=== PATIENT | female | born 1965 | race Hispanic/Latino ===

== ENCOUNTER 2017-06-19 10:32 | Emergency (ER) | payer MEDICAID, OTHER ==
[2017-06-19] MEDS ORDERED: VANCOMYCIN/NS 1 GM/250 ML 1 GM/250 ML BAG IV ONE (11:17)
--- NOTE | 2017-06-19 11:21 | Emergency Department Report ---
HPI - General Chief Complaint: Skin/Abscess/Foreign Body Time Seen by Provider: 06/19/17 11:06 - HPI HPI: This is a 52-year-old female presents to the emergency department with complaint of a left lateral breast abscess and/or cellulitis has been going on for the past 5 days. She says it has been draining some purulent discharge. She denies any fever, nausea, vomiting, chest pain, shortness of breath. She is not taking anything for her symptoms prior to presentation. She has a history of insulin-dependent diabetes. Her primary care physician is a Dr. Digna Galvan. She is not seeing anyone regarding her symptoms prior to presentation. No recent travel or sick contacts at home. ED Past Medical Hx - Past Medical History Hx Congestive Heart Failure: No Hx Diabetes: Yes Hx Asthma: No Hx COPD: No Additional medical history: foot ulcers - Surgical History Additional Surgical History: . LEFT 2ND TOE AMPUTATED,tubiligation - Social History Smoking Status: Never Smoker Substance Use Type: None - Medications Home Medications: Home Medications Medication Instructions Recorded Confirmed Last Taken Type Insulin Glargine [Lantus VIAL] 20 unit SUB-Q QHS 07/29/16 07/29/16 Unknown History Insulin Lispro [HumaLOG VIAL] 7 units SQ AC 07/29/16 07/29/16 Unknown History Lisinopril [Zestril TAB] 10 mg PO QDAY 07/29/16 07/29/16 Unknown History Clindamycin [Clindamycin CAP] 300 mg PO Q8H #30 cap 08/02/16 Unknown Rx HYDROcodone/APAP 5-325 [[place] 1 each PO Q6HR PRN #10 tablet 06/19/17 Unknown Rx 5/325] Sulfamethoxazole/Trimethoprim 1 each PO BID #20 tablet 06/19/17 Unknown Rx [Bactrim DS TAB] ED Review of Systems ROS: Stated complaint: ABCESS UNDER LEFT BREAST Other details as noted in HPI Comment: All other systems reviewed and negative Constitutional: denies: chills, fever Eyes: denies: eye pain, eye discharge, vision change ENT: denies: ear pain, throat pain Respiratory: denies: cough, shortness of breath, wheezing Cardiovascular: denies: chest pain, palpitations Gastrointestinal: denies: abdominal pain, nausea, diarrhea Genitourinary: denies: urgency, dysuria, discharge Musculoskeletal: denies: back pain, joint swelling, arthralgia Skin: lesions, change in color Neurological: denies: headache, weakness, paresthesias Physical Exam - Physical Exam Vital Signs: Vital Signs 06/19/17 10:43 Temperature 98.2 F Pulse Rate 100 H Respiratory 16 Rate Blood Pressure 170/85 O2 Sat by Pulse 100 Oximetry Physical Exam: GENERAL: The patient is well-developed well-nourished. HENT: Normocephalic. Atraumatic. Patient has moist mucous membranes. EYES: Extraocular motions are intact. Pupils equal reactive to light bilaterally. NECK: Supple. No meningitic signs are noted. There is no adenopathy noted. CHEST/LUNGS: Clear to auscultation. There is no respiratory distress noted. HEART/CARDIOVASCULAR: Regular. There is no tachycardia. There is no gallop rub or murmur. ABDOMEN: Abdomen is soft, nontender. Patient has normal bowel sounds. There is no abdominal distention. SKIN: There is a moderate amount of erythema seen to the left lateral breast. In the middle of this erythema is a eschar and some mild surrounding fluctuance concerning for a abscess. NEURO: The patient is awake, alert, and oriented. The patient is cooperative. The patient has no focal neurologic deficits. The patient has normal speech. MUSCULOSKELETAL: There is no tenderness or deformity. There is no limitation range of motion. There is no evidence of acute injury. ED Course Vital Signs 06/19/17 10:43 Temperature 98.2 F Pulse Rate 100 H Respiratory 16 Rate Blood Pressure 170/85 O2 Sat by Pulse 100 Oximetry ED Medical Decision Making - Lab Data Result diagrams: 06/19/17 13:50 - Radiology Data Radiology results: report reviewed Left breast ultrasound shows subcutaneous region of the left breast at the 4 o' clock position that there is a small hypoechoic collection measuring 1.4 x 0.6 cm. There is no acute stick shadowing. This probably represents a small abscess or hematoma. - Medical Decision Making 52-year-old female presents with a five-day history of left breast lesion concerning for abscess. Physical exam it also appears as if there is cellulitic changes. The abscess previously was draining and that is how it appears as there is currently now an eschar but no significant fluctuance. Her vitals are stable including being afebrile. CBC was obtained and there is no leukocytosis. Ultrasound confirmed the abscess. Given vancomycin antibiotics here. She'll go home on antibiotics and given a referral for kayla Li to follow up regarding the breast abscess and cellulitis. - Differential Diagnosis abscess, cellulitis, boil, cyst, malignancy Critical Care Time: No Critical care attestation.: If time is entered above; I have spent that time in minutes in the direct care of this critically ill patient, excluding procedure time. ED Disposition Clinical Impression: Breast abscess, Cellulitis of breast Disposition: DC- TO HOME OR SELFCARE Is pt being admited?: No Condition: Stable Instructions: Breast Abscess Drainage (ED), Cellulitis (ED) Additional Instructions: Please follow up with your primary care physician. I've given a referral for Kayla Li, who can further evaluate your breast abscess and cellulitis. Take the antibiotics as prescribed. Return to the emergency Department with any worsening of her symptoms or any acute distress. You have been prescribed a medication that is sedating and therefore should not be taken prior to driving, working, and responsible for children and in no way should be mixed with alcohol of any quantity. Prescriptions: HYDROcodone/APAP 5-325 [[place] 5/325] 1 each PO Q6HR PRN #10 tablet PRN Reason: Pain Sulfamethoxazole/Trimethoprim [Bactrim DS TAB] 1 each PO BID #20 tablet Referrals: PRIMARY CAREMD [Primary Care Provider] - 3-5 Days [facility] [Provider Group] - 3-5 Days Time of Disposition: 14:14
--- NOTE | 2017-06-19 13:54 | Ultrasound Report ---
Targeted left breast ultrasound. History: Left breast wound with periodic drainage. Findings: A limited study was performed at the site of clinical findings. In the subcutaneous region of the left breast at the 4:00 position, there is a small hypoechoic collection measuring 1.4 x 0.6 cm. There is no acoustic shadowing. This probably represents a small abscess or hematoma.
[2017-06-19 14:08] LABS: Basophils % (Auto) 1.4 % (0.0-1.8); Eosinophils % (Auto) 1.4 % (0.0-4.3); Hematocrit 40.4 % (30.3-42.9); Mean Corpuscular HGB Conc 35 % (30-34); Mean Corpuscular Hemoglobin 30 pg (28-32); Mean Corpuscular Volume 87 fl (79-97); Red Blood Count 4.64 M/mm3 (3.65-5.03); Red Cell Distribution Width 13.2 % (13.2-15.2); White Blood Count 7.5 K/mm3 (4.5-11.0)
[2017-06-19 14:48] VITALS: BP 147/78
[2017-06-19 16:11] LABS: Platelet Count 123 K/mm3 (140-440)
== END 2017-06-19 14:48 | disposition home or self-care (01) ==
LOC: ED 10:32
DX: N61.1 Abscess of the breast and nipple (principal); N61.0 Mastitis without abscess; E11.9 Type 2 diabetes mellitus without complications; Z79.4 Long term (current) use of insulin
CPT/HCPCS: 36415; 76642; 85025; 96365; 99284; J3370

== ENCOUNTER 2017-08-21 08:56 | Emergency (ER) | payer OTHER ==
[2017-08-21 09:15] VITALS: BP 154/72
[2017-08-21] MEDS ORDERED: MOTRIN PO ONE (11:01)
--- NOTE | 2017-08-21 11:37 | XRay Report ---
Right hip 3 views: History: Hip pain. Findings: There is moderate to severe arthritic changes noted at the superior aspect of the hip joint. No fracture dislocation or soft tissue calcification. Impression: Arthritic changes right hip.
--- NOTE | 2017-08-21 11:56 | Emergency Department Report ---
ED Lower Extremity HPI - General Chief Complaint: Extremity Injury, Lower Stated Complaint: RIGHT HIP PAIN Time Seen by Provider: 08/21/17 10:53 Source: patient Mode of arrival: Ambulatory Limitations: No Limitations - History of Present Illness Initial Comments: This is a 52-year-old female nontoxic, well nourished in appearance, no acute signs of distress presents to the ED complaining of chronic intermittent right hip pain. Patient stated the last 3 days she developed right hip pain worsening. Patient denies any trauma to the region. Denies any joint swelling , joint redness, fever, chills, numbness, tingling, headache, stiff neck, chest pain or shortness of breath. Patient states symptoms are resolved with taking [id number] Tylenol. She denies any allergies. Past medical history includes diabetes. MD Complaint: hip injury -: year(s) Injury: Hip: Right Severity: mild Severity scale (0 -10): 8 Improves With: other (Tylenol) Worsens With: nothing Associated Symptoms: ambulatory. denies: snap/pop sensation, swelling, numbness , tingling, unable to bear weight, able to partially bear weight - Related Data Home Medications Medication Instructions Recorded Confirmed Last Taken Insulin Glargine [Lantus VIAL] 20 unit SUB-Q QHS 07/29/16 07/29/16 Unknown Insulin Lispro [HumaLOG VIAL] 7 units SQ AC 07/29/16 07/29/16 Unknown Lisinopril [Zestril TAB] 10 mg PO QDAY 07/29/16 07/29/16 Unknown Previous Rx's Medication Instructions Recorded Last Taken Type Clindamycin [Clindamycin CAP] 300 mg PO Q8H #30 cap 08/02/16 Unknown Rx HYDROcodone/APAP 5-325 [[place] 1 each PO Q6HR PRN #10 tablet 06/19/17 Unknown Rx 5/325] Sulfamethoxazole/Trimethoprim 1 each PO BID #20 tablet 06/19/17 Unknown Rx [Bactrim DS TAB] Acetaminophen [Tylenol Arthritis] 650 mg PO Q8H #30 tablet.er 08/21/17 Unknown Rx Allergies Allergy/AdvReac Type Severity Reaction Status Date / Time No Known Allergies Allergy Verified 06/19/17 10:36 ED Review of Systems ROS: Stated complaint: RIGHT HIP PAIN Other details as noted in HPI Constitutional: denies: chills, fever Eyes: denies: eye pain, eye discharge, vision change ENT: denies: ear pain, throat pain Respiratory: denies: cough, shortness of breath, wheezing Cardiovascular: denies: chest pain, palpitations Endocrine: no symptoms reported Gastrointestinal: denies: abdominal pain, nausea, diarrhea Genitourinary: denies: urgency, dysuria, discharge Musculoskeletal: denies: back pain, joint swelling, arthralgia Skin: denies: rash, lesions Neurological: denies: headache, weakness, paresthesias Psychiatric: denies: anxiety, depression Hematological/Lymphatic: denies: easy bleeding, easy bruising ED Past Medical Hx - Past Medical History Previous Medical History?: Yes Hx CVA: No Hx Congestive Heart Failure: No Hx Diabetes: Yes Hx Deep Vein Thrombosis: No Hx GERD: No Hx of Cancer: No Hx Headaches / Migraines: No Hx Asthma: No Hx COPD: No Additional medical history: foot ulcers - Surgical History Past Surgical History?: Yes Additional Surgical History: . LEFT 2ND TOE AMPUTATED,tubiligation - Social History Smoking Status: Never Smoker Substance Use Type: None - Medications Home Medications: Home Medications Medication Instructions Recorded Confirmed Last Taken Type Insulin Glargine [Lantus VIAL] 20 unit SUB-Q QHS 07/29/16 07/29/16 Unknown History Insulin Lispro [HumaLOG VIAL] 7 units SQ AC 07/29/16 07/29/16 Unknown History Lisinopril [Zestril TAB] 10 mg PO QDAY 07/29/16 07/29/16 Unknown History Clindamycin [Clindamycin CAP] 300 mg PO Q8H #30 cap 08/02/16 Unknown Rx HYDROcodone/APAP 5-325 [[place] 1 each PO Q6HR PRN #10 tablet 06/19/17 Unknown Rx 5/325] Sulfamethoxazole/Trimethoprim 1 each PO BID #20 tablet 06/19/17 Unknown Rx [Bactrim DS TAB] Acetaminophen [Tylenol Arthritis] 650 mg PO Q8H #30 tablet.er 08/21/17 Unknown Rx ED Physical Exam - General Limitations: No Limitations General appearance: alert, in no apparent distress - Head Head exam: Present: atraumatic, normocephalic, normal inspection - Eye Eye exam: Present: normal appearance, PERRL, EOMI. Absent: scleral icterus, conjunctival injection, nystagmus, periorbital swelling, periorbital tenderness Pupils: Present: normal accommodation - ENT ENT exam: Present: normal exam, normal orophraynx, mucous membranes moist, TM's normal bilaterally, normal external ear exam - Neck Neck exam: Present: normal inspection, full ROM. Absent: tenderness, meningismus, lymphadenopathy, thyromegaly - Respiratory Respiratory exam: Present: normal lung sounds bilaterally. Absent: respiratory distress, wheezes, rales, rhonchi, stridor, chest wall tenderness, accessory muscle use, decreased breath sounds, prolonged expiratory - Cardiovascular Cardiovascular Exam: Present: regular rate, normal rhythm, normal heart sounds. Absent: bradycardia, tachycardia, irregular rhythm, systolic murmur, diastolic murmur, rubs, gallop - GI/Abdominal GI/Abdominal exam: Present: soft, normal bowel sounds. Absent: distended, tenderness, guarding, rebound, rigid, diminished bowel sounds - Rectal Rectal exam: Present: deferred - Extremities Exam Extremities exam: Present: normal inspection, full ROM, normal capillary refill. Absent: tenderness, pedal edema, joint swelling, calf tenderness - Expanded Lower Extremity Exam Right Hip exam: Present: normal inspection, full ROM, external rotation, internal rotation, pelvic stability. Absent: tenderness, swelling, abrasion, laceration , ecchymosis, deformity, crepidus, dislocation, erythema, shortening Upper Leg exam: Present: normal inspection, full ROM Knee exam: Present: normal inspection, full ROM Lower Leg exam: Present: normal inspection, full ROM Ankle exam: Present: normal inspection, full ROM Foot/Toe exam: Present: normal inspection, full ROM Neuro vascular tendon exam: Present: no vascular compromise. Absent: pulse deficit, abnormal cap refill, motor deficit, sensory deficit, tendon deficit, extremity cold to touch, pallor, abnormal 2-point discrimination, decreased fine /light touch, foot drop, peroneal nerve deficit, significant pain with passive ROM of distal joint Gait: Positive: observed and normal - Back Exam Back exam: Present: normal inspection, full ROM. Absent: tenderness, CVA tenderness (R), CVA tenderness (L), muscle spasm, paraspinal tenderness, vertebral tenderness, rash noted - Neurological Exam Neurological exam: Present: alert, oriented X3, CN II-XII intact, normal gait, reflexes normal - Psychiatric Psychiatric exam: Present: normal affect, normal mood - Skin Skin exam: Present: warm, dry, intact, normal color. Absent: rash ED Course Vital Signs 08/21/17 09:04 Temperature 97.9 F Pulse Rate 63 Respiratory 16 Rate Blood Pressure 154/72 O2 Sat by Pulse 97 Oximetry - Reevaluation(s) Reevaluation #1: 08/21/17 11:58 Patient is speaking in full sentences with no signs of distress noted. ED Lower Extremity MDM - Medical Decision Making This is a 52-year-old female that presents with arthritic pain over the right hip. Patient was examined by me and patient is stable. There are no signs of cellulitis, swelling, bursitis. Normal range of motion and normal abduction and abduction. X-ray has been obtained and reviewed by radiologist with findings of arthritis. Patient notified of x-ray results with no further questions nor by the patient. Patient received ibuprofen 800 mg by mouth and ED with persistent symptoms are improving and are subsided. Patient was instructed to follow-up with a primary care doctor in 3-5 days or if symptoms worsen and continue return to emergency room as soon as possible possible. Patient is hemodynamically stable with stable vital signs. Patient states he is feeling better. At time time of discharge, the patient does not seem toxic or ill in appearance. No acute signs of distress noted. Patient agrees to discharge treatment plan of care. No further questions noted by the patient. patient will be treated with Tylenol arthritis. Critical care attestation.: If time is entered above; I have spent that time in minutes in the direct care of this critically ill patient, excluding procedure time. ED Disposition Clinical Impression: Arthritis Disposition: DC-01 TO HOME OR SELFCARE Is pt being admited?: No Does the pt Need Aspirin: No Condition: Stable Instructions: Acetaminophen (By mouth), Rheumatoid Arthritis (ED) Additional Instructions: Follow-up with a primary care doctor in 3-5 days or if symptoms worsen and continue return to emergency room as soon as possible possible. Prescriptions: Acetaminophen [Tylenol Arthritis] 650 mg PO Q8H #30 tablet.er Referrals: PRIMARY MD SAMANTHA [Primary Care Provider] - 3-5 Days MYAH CHAWLA MD [Staff Physician] - 3-5 Days [facility] [Outside] - 3-5 Days [facility] [place] [Outside] - 3-5 Days
== END 2017-08-21 12:08 | disposition home or self-care (01) ==
LOC: ED 08:56
DX: M16.11 Unilateral primary osteoarthritis, right hip (principal); E11.9 Type 2 diabetes mellitus without complications

== ENCOUNTER 2017-11-09 12:16 | Emergency (ER) | payer OTHER ==
[2017-11-09 13:15] VITALS: BP 168/96
[2017-11-09 15:04] LABS: Alanine Aminotransferase 10 units/L (7-56); Albumin 3.6 g/dL (3.9-5); BUN/Creatinine Ratio 32; Blood Urea Nitrogen 16 mg/dL (7-17); Calcium 9.7 mg/dL (8.4-10.2); Hemolysis Index 49
[2017-11-09 17:05] LABS: Hemoglobin 14.5 gm/dl (10.1-14.3); Mean Corpuscular HGB Conc 33 % (30-34); Mean Corpuscular Hemoglobin 29 pg (28-32); Mean Corpuscular Volume 88 fl (79-97); Platelet Count 250 K/mm3 (140-440); Red Blood Count 4.99 M/mm3 (3.65-5.03); Red Cell Distribution Width 12.8 % (13.2-15.2)
--- NOTE | 2017-11-09 17:13 | Emergency Department Report ---
ED Extremity Problem HPI - General Chief complaint: Extremity Problem,Nontraumatic Stated complaint: SORE LEFT LEG W/REDNESS Time Seen by Provider: 11/09/17 17:06 Source: patient Mode of arrival: Ambulatory Limitations: No Limitations - History of Present Illness Initial comments: Pleasant diabetic 52 y/o female diabetic patient who reports that she has had a non-healing ulcer on her left lower extremity, and her patient financial services specialist put her in a cast, the cast was apparently rubbing against her leg and then she noted increased redness, swelling, and warmth to the area. She denies chest pain or shortness of breath, no other symptoms. She states she is worried about a clot. MD Complaint: extremity pain (left), extremity swelling (left) -: days(s) (2) Location: left, lower extremity History of Same: No Radiation: none Severity scale (0 -10): 5 Quality: aching Consistency: constant Improves with: nothing Worsens with: nothing Associated Symptoms: denies other symptoms. denies: chest pain, shortness of breath, fever, myalgias, arthralgias, rash - Related Data Home Medications Medication Instructions Recorded Confirmed Last Taken Insulin Glargine [Lantus VIAL] 20 unit SUB-Q QHS 07/29/16 07/29/16 Unknown Insulin Lispro [HumaLOG VIAL] 7 units SQ AC 07/29/16 07/29/16 Unknown Lisinopril [Zestril TAB] 10 mg PO QDAY 07/29/16 07/29/16 Unknown Previous Rx's Medication Instructions Recorded Last Taken Type Clindamycin [Clindamycin CAP] 300 mg PO Q8H #30 cap 08/02/16 Unknown Rx HYDROcodone/APAP 5-325 [[place] 1 each PO Q6HR PRN #10 tablet 06/19/17 Unknown Rx 5/325] Sulfamethoxazole/Trimethoprim 1 each PO BID #20 tablet 06/19/17 Unknown Rx [Bactrim DS TAB] Acetaminophen [Tylenol Arthritis] 650 mg PO Q8H #30 tablet.er 08/21/17 Unknown Rx Clindamycin [Clindamycin CAP] 300 mg PO Q8H 10 Days #30 cap 11/09/17 Unknown Rx Allergies Allergy/AdvReac Type Severity Reaction Status Date / Time No Known Allergies Allergy Verified 06/19/17 10:36 ED Review of Systems ROS: Stated complaint: SORE LEFT LEG W/REDNESS Other details as noted in HPI Constitutional: no symptoms reported Respiratory: no symptoms reported Cardiovascular: denies: chest pain Endocrine: no symptoms reported Gastrointestinal: as per HPI Genitourinary: as per HPI Musculoskeletal: as per HPI Skin: as per HPI, other (warm, erythema ) Neurological: as per HPI Hematological/Lymphatic: as per HPI ED Past Medical Hx - Past Medical History Previous Medical History?: Yes Hx CVA: No Hx Congestive Heart Failure: No Hx Diabetes: Yes Hx Deep Vein Thrombosis: No Hx GERD: No Hx Headaches / Migraines: No Hx Asthma: No Hx COPD: No Additional medical history: foot ulcers - Surgical History Past Surgical History?: Yes Additional Surgical History: . LEFT 2ND TOE AMPUTATED,tubiligation - Social History Smoking Status: Never Smoker Substance Use Type: None - Medications Home Medications: Home Medications Medication Instructions Recorded Confirmed Last Taken Type Insulin Glargine [Lantus VIAL] 20 unit SUB-Q QHS 07/29/16 07/29/16 Unknown History Insulin Lispro [HumaLOG VIAL] 7 units SQ AC 07/29/16 07/29/16 Unknown History Lisinopril [Zestril TAB] 10 mg PO QDAY 07/29/16 07/29/16 Unknown History Clindamycin [Clindamycin CAP] 300 mg PO Q8H #30 cap 08/02/16 Unknown Rx HYDROcodone/APAP 5-325 [[place] 1 each PO Q6HR PRN #10 tablet 06/19/17 Unknown Rx 5/325] Sulfamethoxazole/Trimethoprim 1 each PO BID #20 tablet 06/19/17 Unknown Rx [Bactrim DS TAB] Acetaminophen [Tylenol Arthritis] 650 mg PO Q8H #30 tablet.er 08/21/17 Unknown Rx Clindamycin [Clindamycin CAP] 300 mg PO Q8H 10 Days #30 cap 11/09/17 Unknown Rx ED Physical Exam - General Limitations: No Limitations General appearance: alert, in no apparent distress - Head Head exam: Present: atraumatic, normocephalic - Eye Eye exam: Present: normal appearance - ENT ENT exam: Present: mucous membranes moist - Neck Neck exam: Present: normal inspection - Respiratory Respiratory exam: Present: normal lung sounds bilaterally. Absent: respiratory distress - Cardiovascular Cardiovascular Exam: Present: regular rate, normal rhythm. Absent: systolic murmur, diastolic murmur, rubs, gallop - GI/Abdominal GI/Abdominal exam: Present: soft, normal bowel sounds - Expanded Lower Extremity Exam Left Hip exam: Present: normal inspection, full ROM Upper Leg exam: Present: normal inspection Knee exam: Present: normal inspection Lower Leg exam: Present: full ROM, tenderness, swelling, abrasion, erythema Ankle exam: Present: normal inspection Foot/Toe exam: Present: amputation - Back Exam Back exam: Present: normal inspection - Neurological Exam Neurological exam: Present: alert, oriented X3 - Psychiatric Psychiatric exam: Present: normal affect, normal mood - Skin Skin exam: Present: warm, dry, intact, normal color. Absent: rash ED Course Vital Signs 11/09/17 13:10 Temperature 98.4 F Pulse Rate 107 H Respiratory 18 Rate Blood Pressure 168/96 O2 Sat by Pulse 97 Oximetry ED Medical Decision Making - Lab Data Result diagrams: 11/09/17 16:49 11/09/17 13:52 Critical Care Time: No Critical care attestation.: If time is entered above; I have spent that time in minutes in the direct care of this critically ill patient, excluding procedure time. ED Disposition Clinical Impression: Cellulitis of leg, left Diabetes mellitus Qualifiers: Diabetes mellitus type: other specified (including JOHN) Diabetes mellitus complication status: with skin complications Diabetes mellitus complication detail: with other skin ulcer Diabetes mellitus usp insulin use: with terminal manager use Qualified Code(s): E13.622 - Other specified diabetes mellitus with other skin ulcer; Z79.4 - care home (current) use of insulin; Z79.4 - technician terminal and repeater (current) use of insulin; Z79.4 - technician terminal and repeater (current) use of insulin; Z79.4 - care home (current) use of insulin Disposition: DC-01 TO HOME OR SELFCARE Is pt being admited?: No Does the pt Need Aspirin: No Condition: Good Instructions: Diabetes Mellitus Type 2 in Adults (ED), Cellulitis (ED) Additional Instructions: Rest, fluids, follow up with your PMD, return as needed, watch for worsening, new symptoms. Take antibiotics as prescribed. Call 911 if you think you're having a life threatening emergency. Prescriptions: Clindamycin [Clindamycin CAP] 300 mg PO Q8H 10 Days #30 cap Referrals: TONY WINSTON MD [Primary Care Provider] - 3-5 Days
[2017-11-09] MEDS ORDERED: CLEOCIN PO ONE (17:27)
--- NOTE | 2017-11-13 11:44 | Vascular Lab Report ---
Left Lower Extremity Venous Duplex Study: Reason for Exam: Pain of the left lower extremity. Comments on the Right: A limited duplex study was done of the proximal veins of the right lower extremity. All veins visualized are freely compressible without evidence of internal echogenicity. Flow is spontaneous and phasic throughout. No evidence of acute or chronic thrombus is seen in any of the vessels visualized. Comments on the Left: All veins visualized are freely compressible without evidence of internal echogenicity. Flow is spontaneous and phasic throughout. No evidence of acute or chronic thrombus is seen in any of the vessels visualized. Impression: No evidence of acute or chronic deep venous thrombosis in the left lower extremity.
== END 2017-11-09 17:48 | disposition home or self-care (01) ==
LOC: ED 12:16
DX: L03.116 Cellulitis of left lower limb (principal); E11.622 Type 2 diabetes mellitus with other skin ulcer; L97.828 Non-pressure chronic ulcer of other part of left lower leg with other specified severity; Z79.4 Long term (current) use of insulin
CPT/HCPCS: 36415; 80053; 85025

== ENCOUNTER 2019-03-23 11:34 | Emergency (ER) | payer OTHER ==
--- NOTE | 2019-03-23 11:45 | Emergency Department Report ---
Chief Complaint: Hyperglycemia Stated Complaint: HIGH GLUCOSE Time Seen by Provider: 03/23/19 11:41 - HPI History of Present Illness: This is a 53 y.o. F. that presents to the ER with elevated glucose. Patient went to her PCP this morning for swelling and rash to LLE and diagnosed with cellulitis. They checked her glucose 516 and told to f/u in ER. PMH: DM2, HTN, HLD - Exam Vital Signs: Vital Signs 03/23/19 11:42 Temperature 97.9 F Pulse Rate 109 H Respiratory 18 Rate Blood Pressure 150/79 O2 Sat by Pulse 96 Oximetry MSE screening note: Focused history and physical exam performed. Due to findings the following was ordered: This initial assessment/diagnostic orders/clinical plan/treatment(s) is/are subject to change based on patient's health status, clinical progression and re- assessment by fellow clinical providers in the ED. Further treatment and workup at subsequent clinical providers discretion. Patient/guardians urged not to elope from the ED as their condition may be serious if not clinically assessed and managed. Initial orders include: 1- Patient sent to Main ER for further evaluation and treatment 2- Labs ED Medical Decision Making - Lab Data Lab Results 03/23/19 Range/Units 11:45 POC Glucose 306 H (70-105) ED Disposition for MSE Condition: Stable
[2019-03-23 12:31] LABS: Hematocrit 36.4 % (30.3-42.9); Hemoglobin 12.5 gm/dl (10.1-14.3); Mean Corpuscular HGB Conc 34 % (30-34); Mean Corpuscular Volume 86 fl (79-97); Platelet Count 289 K/mm3 (140-440); Red Blood Count 4.25 M/mm3 (3.65-5.03); Red Cell Distribution Width 13.6 % (13.2-15.2)
[2019-03-23 12:38] LABS: Bacteria,Urine 1+ /HPF (Negative); Bilirubin,Urine NEG (Negative); Blood,Urine SM (Negative); Color,Urine Yellow (Yellow); Mucus,Urine FEW /HPF; Urobilinogen,Urine < 2.0 mg/dL (<2.0)
[2019-03-23 12:53] LABS: Albumin 4.1 g/dL (3.9-5)
[2019-03-23] MEDS ORDERED: NACL 0.9% 1000 ML 2,000 ML IV ONE (13:42)
[2019-03-23] MEDS ORDERED: HumuLIN R IV ONE (13:42)
--- NOTE | 2019-03-23 13:42 | Emergency Department Report ---
ED General Adult HPI - General Chief complaint: Hyperglycemia Stated complaint: HIGH GLUCOSE Time Seen by Provider: 03/23/19 11:41 Source: patient, RN notes reviewed, old records reviewed Mode of arrival: Ambulatory Limitations: No Limitations - History of Present Illness Initial comments: Primary care Dr.: Dr. Edmundo Pierce This is a 53-year-old female. The patient is known to this provider previously. Her past medical history includes hypertension, diabetes, history of left foot toe amputations, chronic wounds, now resolved The patient presents to the emergency room today with a complaint of "my doctor sent me here." The patient complains of a painless rash to her distal left lower extremity. The rash has been constant for the past couple days. It is nontender. It is not painful. She denies fevers, chills, pain, pruritus. She denies headache, neck pain, chest pain, abdominal pain, shortness of breath. She denies irritative, obstructive urinary symptoms. Apparently, she was found to be hyperglycemic as well. She endorses compliance with her diabetic medications. She denies dietary indiscretions. She is not currently taking antibiotics. -: days(s) Location: left, lower extremity Consistency: constant Improves with: none Worsens with: cold therapy Associated Symptoms: rash - Related Data Home Medications Medication Instructions Recorded Confirmed Last Taken Insulin Glargine,Hum.rec.anlog 15 units SUB-Q HS 03/23/19 03/23/19 Unknown [Basaglar Kwikpen U-100] Insulin NPH Hum/Reg Insulin Hm 6 units SUB-Q AC 03/23/19 03/23/19 03/23/19 [HumuLIN 70-30 Vial] amLODIPine [Norvasc] 10 mg PO DAILY 03/23/19 03/23/19 03/23/19 Allergies Allergy/AdvReac Type Severity Reaction Status Date / Time No Known Allergies Allergy Verified 03/23/19 11:35 ED Review of Systems ROS: Stated complaint: HIGH GLUCOSE Other details as noted in HPI Constitutional: denies: fever Eyes: denies: eye discharge ENT: denies: epistaxis Respiratory: denies: cough Cardiovascular: denies: chest pain Gastrointestinal: denies: abdominal pain Genitourinary: denies: dysuria Skin: rash, lesions Neurological: weakness Psychiatric: anxiety ED Past Medical Hx - Past Medical History Hx CVA: No Hx Congestive Heart Failure: No Hx Diabetes: Yes Hx Deep Vein Thrombosis: No Hx GERD: No Hx Headaches / Migraines: No Hx Asthma: No Hx COPD: No Additional medical history: foot ulcers - Surgical History Additional Surgical History: . LEFT 2ND TOE AMPUTATED,tubal ligation - Social History Smoking Status: Never Smoker Substance Use Type: None - Medications Home Medications: Home Medications Medication Instructions Recorded Confirmed Last Taken Type Insulin Glargine,Hum.rec.anlog 15 units SUB-Q HS 03/23/19 03/23/19 Unknown History [Basaglar Kwikpen U-100] Insulin NPH Hum/Reg Insulin Hm 6 units SUB-Q AC 03/23/19 03/23/19 03/23/19 History [HumuLIN 70-30 Vial] amLODIPine [Norvasc] 10 mg PO DAILY 03/23/19 03/23/19 03/23/19 History ED Physical Exam - General Limitations: No Limitations General appearance: alert, anxious - Head Head exam: Present: atraumatic, normocephalic - Eye Eye exam: Present: normal appearance, EOMI. Absent: nystagmus - ENT ENT exam: Present: normal exam, normal orophraynx, mucous membranes moist, normal external ear exam - Neck Neck exam: Present: normal inspection, full ROM. Absent: tenderness, meni ngismus - Respiratory Respiratory exam: Present: normal lung sounds bilaterally. Absent: respiratory distress - Cardiovascular Cardiovascular Exam: Present: normal rhythm, tachycardia, normal heart sounds. Absent: systolic murmur, diastolic murmur, rubs, gallop - GI/Abdominal GI/Abdominal exam: Present: soft. Absent: distended, tenderness, guarding, rebound, rigid, pulsatile mass - Extremities Exam Extremities exam: Present: full ROM, other (2+ pulses noted in the bilateral upper, lower extremities. Compartments soft. No long bony tenderness. The pelvis is stable.). Absent: tenderness, joint swelling, calf tenderness - Back Exam Back exam: Present: normal inspection, full ROM. Absent: tenderness, CVA tenderness (R), muscle spasm, paraspinal tenderness, vertebral tenderness - Neurological Exam Neurological exam: Present: alert, other (Extraocular movements intact. Tongue midline. No facial droop. Facial sensation intact to light touch in the V1, V2, V3 distribution bilaterally. 5 and 5 strength in 4 extremities.. Sensation is intact to light touch in 4 extremities.). Absent: motor sensory deficit - Psychiatric Psychiatric exam: Present: anxious - Skin Skin exam: Present: warm, other (on the left lower extremity, nontender purpuric lesions noted, minimally blanching, with no redness, pus, streaking or warmth. Compartments are soft.) ED Course Vital Signs 03/23/19 03/23/19 03/23/19 11:42 15:30 17:16 Temperature 97.9 F Pulse Rate 109 H 104 H 100 H Respiratory 18 18 19 Rate Blood Pressure 150/79 Blood Pressure 144/74 133/71 [Right] O2 Sat by Pulse 96 98 96 Oximetry - Reevaluation(s) Reevaluation #1: 03/23/19 14:57 Differential diagnosis, including but not limited to: Venous stasis, Pigmented purpuric dermatoses, incidental hyperglycemia, incidental renal insufficiency Assessment and plan: 53-year-old female, sent to the emergency room for nontender purpuric rash on her left lower extremity, likely venous stasis, or Pigmented purpuric dermatoses There is no redness, warmth, tenderness, her examination is not consistent with cellulitis or compartment syndrome. Incidentally found to have evidence of dehydration, manifested by tachycardia, and minimal renal insufficiency. She is found to be hyperglycemic, without evidence of anion gap acidosis. Reassurance is provided to the patient. She can follow up with an outpatient cardiology specialist electively. She will be given IV fluids for presumed dehydration. She can follow up with her outpatient primary care doctor, or college coach for her incidental renal insufficiency. 03/23/19 14:58 Reevaluation #2: 03/23/19 14:59 Urinalysis is reviewed and appreciated. The patient does not endorse any urinary symptoms. Reevaluation #3: 03/23/19 17:18 Patient is observed in the emergency room for a few hours. Her tachycardia is improving. She is tolerating liquid feeds. Hyperglycemia overzealously corrected, and now acceptable, with a level at 190. Has no urinary symptoms. The patient is suitable to be discharged to follow-up with her outpatient physician. ED Medical Decision Making - Lab Data Result diagrams: 03/23/19 11:56 03/23/19 Unknown Vital Signs 03/23/19 11:42 Temperature 97.9 F Pulse Rate 109 H Respiratory 18 Rate Blood Pressure 150/79 O2 Sat by Pulse 96 Oximetry Lab Results 03/23/19 03/23/19 03/23/19 Range/Units 11:45 11:56 11:58 WBC 6.8 (4.5-11.0) K/mm3 RBC 4.25 (3.65-5.03) M/mm3 Hgb 12.5 (10.1-14.3) gm/dl Hct 36.4 (30.3-42.9) % MCV 86 (79-97) fl MCH 29 (28-32) pg MCHC 34 (30-34) % RDW 13.6 (13.2-15.2) % Plt Count 289 (140-440) K/mm3 Sodium (137-145) mmol/L Potassium (3.6-5.0) mmol/L Chloride (98-107) mmol/L Carbon Dioxide (22-30) mmol/L Anion Gap mmol/L BUN (7-17) mg/dL Creatinine (0.7-1.2) mg/dL Estimated GFR ml/min BUN/Creatinine Ratio % Glucose (65-100) mg/dL POC Glucose 306 H (70-105) Calcium (8.4-10.2) mg/dL Total Bilirubin (0.1-1.2) mg/dL AST (5-40) units/L ALT (7-56) units/L Alkaline Phosphatase (35-129) units/L Total Protein (6.3-8.2) g/dL Albumin (3.9-5) g/dL Albumin/Globulin Ratio % Urine Color Yellow (Yellow) Urine Turbidity Clear (Clear) Urine pH 5.0 (5.0-7.0) Ur Specific [place] 1.018 (1.003-1.030) Urine Protein 30 mg/dl (Negative) mg/dL Urine Glucose (UA) >=500 (Negative) mg/dL Urine Ketones Neg (Negative) mg/dL Urine Blood Sm (Negative) Urine Nitrite Neg (Negative) Urine Bilirubin Neg (Negative) Urine Urobilinogen < 2.0 (<2.0) mg/dL Ur Leukocyte Esterase Sm (Negative) Urine WBC (Auto) 30.0 H (0.0-6.0) /HPF Urine RBC (Auto) 1.0 (0.0-6.0) /HPF U Epithel Cells (Auto) 3.0 (0-13.0) /HPF Urine Bacteria (Auto) 1+ (Negative) /HPF Urine Mucus Few /HPF 03/23/19 Range/Units Unknown WBC (4.5-11.0) K/mm3 RBC (3.65-5.03) M/mm3 Hgb (10.1-14.3) gm/dl Hct (30.3-42.9) % MCV (79-97) fl MCH (28-32) pg MCHC (30-34) % RDW (13.2-15.2) % Plt Count (140-440) K/mm3 Sodium 137 (137-145) mmol/L Potassium 4.1 (3.6-5.0) mmol/L Chloride 97.1 L (98-107) mmol/L Carbon Dioxide 28 (22-30) mmol/L Anion Gap 16 mmol/L BUN 27 H (7-17) mg/dL Creatinine 1.4 H (0.7-1.2) mg/dL Estimated GFR 39 ml/min BUN/Creatinine Ratio 19 % Glucose 313 H (65-100) mg/dL POC Glucose (70-105) Calcium 10.0 (8.4-10.2) mg/dL Total Bilirubin 0.20 (0.1-1.2) mg/dL AST 10 (5-40) units/L ALT 14 (7-56) units/L Alkaline Phosphatase 113 (35-129) units/L Total Protein 7.4 (6.3-8.2) g/dL Albumin 4.1 (3.9-5) g/dL Albumin/Globulin Ratio 1.2 % Urine Color (Yellow) Urine Turbidity (Clear) Urine pH (5.0-7.0) Ur Specific [place] (1.003-1.030) Urine Protein (Negative) mg/dL Urine Glucose (UA) (Negative) mg/dL Urine Ketones (Negative) mg/dL Urine Blood (Negative) Urine Nitrite (Negative) Urine Bilirubin (Negative) Urine Urobilinogen (<2.0) mg/dL Ur Leukocyte Esterase (Negative) Urine WBC (Auto) (0.0-6.0) /HPF Urine RBC (Auto) (0.0-6.0) /HPF U Epithel Cells (Auto) (0-13.0) /HPF Urine Bacteria (Auto) (Negative) /HPF Urine Mucus /HPF Critical care attestation.: If time is entered above; I have spent that time in minutes in the direct care of this critically ill patient, excluding procedure time. ED Disposition Clinical Impression: Hyperglycemia, Renal insufficiency Disposition: DC-01 TO HOME OR SELFCARE Is pt being admited?: No Does the pt Need Aspirin: No Condition: Stable Additional Instructions: Please continue outpatient medications. Drink 4-6 cups of water per day. Avoid consumption of salty foods, and foods high in sugar and an simple carbohydrates. Laboratory studies demonstrated mild renal impairment/decreased function of the kidneys. Please follow-up with the primary care doctor or college coach for this within the next 2-4 weeks. Urinalysis demonstrated nonspecific bacteria in the urine. Urine tests and kidney test should be followed up by her primary care doctor or kidney doctor as recommended. Avoid consumption of Motrin, ibuprofen, Naprosyn, Aleve, and GHAZALA inhibitor blood pressure medications, if patient takes his medication. Skin lesion on the left lower extremity at this point in time not consistent with cellulitis, or infection, although patient's underlying medical history temperature at risk for skin infections. The patient can apply [id number] aloe vera to the skin lesions, wash gentle soap and water once every 24 hours, and she can follow up with her primary care doctor or a private cardiology specialist for this skin lesions within the next [address] Chiu is a local curriculum specialist. Please return to the emergency room right away with new pain, worsened pain, migration of pain, projectile vomiting, change in mental status, confusion, inability to tolerate liquid feeds, new, worsening or different symptoms not present on the initial ER evaluation. Referrals: ANIL BUSTOS MD [Primary Care Provider] - 3-5 Days WILMAR CHIU MD [Staff Physician] - 3-5 Days HAMILTON GUARDADO MD [Staff Physician] - 3-5 Days
[2019-03-23 17:16] VITALS: BP 133/71
== END 2019-03-23 17:39 | disposition home or self-care (01) ==
LOC: ED 11:34
DX: E11.65 Type 2 diabetes mellitus with hyperglycemia (principal); R21 Rash and other nonspecific skin eruption; I10 Essential (primary) hypertension; N28.9 Disorder of kidney and ureter, unspecified; Z98.51 Tubal ligation status; Z79.4 Long term (current) use of insulin
CPT/HCPCS: 36415; 80053; 81001; 82962; 85027; 96361; 96374; 99283; J7030; J1815

== ENCOUNTER 2020-01-13 08:08 | Outpatient (CLI) | payer OTHER ==
--- NOTE | 2020-01-13 10:47 | XRay Report ---
Left foot INDICATION: LOSS OF TWO TOES ON LEFT FOOT. COMPARISON: 07/29/2016, 05/07/2016. FINDINGS: Interval resection of the left first toe including the metatarsal and phalanges. Interval r esection of the second toe phalanges. There is a large fairly dystrophic area of ossific material racheal r the surgical site. 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 No evidence of acute fracture or findings to suggest cortical osseous destruction. No radiopaque foreign body. IMPRESSION: Interval resection of the left first toe including the metatarsal and phalanges. Interval resection o f the second toe phalanges. There is a large fairly dystrophic area of ossific material near the surg ical site. 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 Signer Name: John Callaway MD Signed: 01/13/2020 10:43 AM Workstation Name: [id number]
== END 2020-01-13 08:09 | disposition home or self-care (01) ==
LOC: XRAY 08:08
PROVIDERS: ATTEND Internal Medicine
DX: E11.9 Type 2 diabetes mellitus without complications (principal); H54.7 Unspecified visual loss; Z89.422 Acquired absence of other left toe(s)